=== PATIENT | female | born 1960 | race Caucasian/White ===

== ENCOUNTER 2018-09-11 20:09 | Observation (INO) ==
--- NOTE | 2018-09-11 20:32 | Emergency Department Note ---
Disposition Clinical Impression: Impacted esophageal foreign body Qualifiers: Encounter type: initial encounter Qualified Code(s): T18.108A - Unspecified foreign body in esophagus causing other injury, initial encounter Disposition: Still a Patient General Adult HPI - General Chief complaint: ED General Medical Stated complaint: Food Bolus Time Seen by Provider: 09/11/18 20:12 Source: patient Limitations: no limitations Nursing Notes Reviewed: Yes Vital Signs Reviewed: Yes - History of Present Illness HPI Narrative: ED attending attestation note: I examined this patient and my medical decision-making was reviewed with the emergency medicine resident CHELSIE BREWER agree with the documented findings, disposition and treatment plan as described except to the extent set forth below. Briefly: 58-year-old female sent from [facility] with impacted food in her esophagus. Patient has a piece of spare ribs stuck since yesterday. Review of chart states the endoscopist there states that they do not have the tools available large enough to take out the food bolus and so they were referred here. Patient's physical examination essentially benign she is awake and alert cooperative normal phonation" she can handle liquids. The patient on endoscopy supply person Dr. Zepeda who will come in to perform an EGD. Disposition pending Pain Scale: 5 - Related Data Previous Rx's Medication Instructions Recorded Cefdinir [Omnicef] 300 mg PO BID #14 capsule 02/12/18 metroNIDAZOLE [Flagyl] 500 mg PO BID #14 tablet 02/12/18 Allergies Allergy/AdvReac Type Severity Reaction Status Date / Time Penicillins AdvReac Rash Verified 02/12/18 20:08 Past Medical History - Past Medical History Medical history: Reports: no medical history - Social History Smoking Status: Current every day smoker Smokeless Tobacco Status: No Alcohol use: Reports: occasionally Drug use: Reports: none Physical Exam - General Limitations: no limitations General appearance: alert, in no apparent distress Course Vital Signs Temperature 98.6 F 09/11/18 20:15 Pulse Rate 76 09/11/18 20:15 Respiratory Rate 16 09/11/18 20:15 Blood Pressure 168/88 09/11/18 20:15 O2 Sat by Pulse Oximetry 99 09/11/18 20:15 Temperature 98.6 F 09/11/18 20:15 Pulse Rate 76 09/11/18 20:15 Respiratory Rate 16 09/11/18 20:15 Blood Pressure 168/88 09/11/18 20:15 O2 Sat by Pulse Oximetry 99 09/11/18 20:15 Oxygen Delivery Oxygen Delivery Room Air
--- NOTE | 2018-09-11 20:43 | Emergency Department Note ---
Disposition Clinical Impression: Impacted esophageal foreign body Qualifiers: Encounter type: initial encounter Qualified Code(s): T18.108A - Unspecified foreign body in esophagus causing other injury, initial encounter Disposition: Still a Patient Condition: Fair Time of Disposition: 21:25 General Adult HPI - General Stated complaint: Food Bolus Time Seen by Provider: 09/11/18 20:12 Source: patient Limitations: no limitations Nursing Notes Reviewed: Yes Vital Signs Reviewed: Yes - History of Present Illness HPI Narrative: 58-year-old female presents as transfer from [facility] for endoscopic evaluation. She was eating food last night at 7 PM; 25 hours prior to arrival. She had sensation of a food bolus becoming stuck in her esophagus. She was eating spare ribs. She experiences pressure at the level of her suprasternal notch. She attempted to drink fluids throughout the day but she would gag and spit them up. She has been swallowing her saliva however, after period of time, will spit them back up. She has attempted to eat crackers and some lunchmeat but her sensation has on been unchanged. Patient has no history of esophageal impaction. She is never had an upper endoscopy. She has no history of reflux or GERD. She presents as transfer from [facility]. There, they attempted glucagon. They attempted sips of water. Endoscopy at their facility was consultative. Their endoscopist at that facility did not have the appropriate equipment and would not perform the endoscopy suite: She recommended transfer to this facility. PMH: None Daily medications: None ROS: Positive: Sensation of esophageal fullness. Inability to tolerate fluids or secretions. Negative: Fever, chills, nausea, chest pains, palpitations, dyspnea, diaphoresis Pain Scale: 5 - Related Data Previous Rx's Medication Instructions Recorded Cefdinir [Omnicef] 300 mg PO BID #14 capsule 02/12/18 metroNIDAZOLE [Flagyl] 500 mg PO BID #14 tablet 02/12/18 Allergies Allergy/AdvReac Type Severity Reaction Status Date / Time Penicillins AdvReac Rash Verified 02/12/18 20:08 All systems ED: reviewed and negative except as stated. Review of Systems: As Per HPI Past Medical History - Past Medical History Medical history: Reports: no medical history - Social History Smoking Status: Current every day smoker Smokeless Tobacco Status: No Alcohol use: Reports: occasionally Drug use: Reports: none Physical Exam Vital Signs Reviewed General: Patient is alert, oriented, and in no acute distress. Patient is protecting her airway. Head: atraumatic, normocephalic Eye: normal appearance, PERRL, EOMI, no scleral icterus, no conjunctival injection ENT: mucous membranes moist, normal external ear exam. Malampatti score 4. Neck: normal inspection, trachea midline, full ROM Chest: normal inspection, symmetric chest rise Respiratory: Good respiratory effort. Bilateral breath sounds are clear without wheezing, crackles, or rhonchi. Cardiovascular: Regular rate and rhythm. No clicks, rubs, gallops, or murmors. Normal heart sounds. Abdomen: Bowel sounds present normoactive. Abdomen is soft, nondistended, and nontender. No guarding or rebound. No organomegaly noted. Musculoskeletal: Spontaneously moving all extremities. Skin: warm, dry, intact. Neuro: GCS 15. No focal neurologic deficits observed. Psych: Patient's affect is appropriate for situation. - General Limitations: no limitations General appearance: alert, in no apparent distress Course Course Narrative: Patient can swallow her secretions however, they build up and she gags and spits them into a basin. She has failed glucagon and does not tolerate sips of water. I discussed the patient with on-call endoscopy, Dr. Quintanilla. He will speak with that management. He agrees to come in for evaluation of the patient. Dr. Quintanilla spoke with that management. Plan to admit the patient to his service. He will be taking the patient to endoscopy suite. Vital Signs Temperature 98.6 F 09/11/18 20:15 Pulse Rate 76 09/11/18 20:15 Respiratory Rate 16 09/11/18 20:15 Blood Pressure 168/88 09/11/18 20:15 O2 Sat by Pulse Oximetry 99 09/11/18 20:15 Temperature 98.6 F 09/11/18 20:15 Pulse Rate 76 09/11/18 20:15 Respiratory Rate 16 09/11/18 20:15 Blood Pressure 168/88 09/11/18 20:15 O2 Sat by Pulse Oximetry 99 09/11/18 20:15 Oxygen Delivery Oxygen Delivery Room Air
--- NOTE | 2018-09-11 21:16 | Anesthesia Evaluation PreOp ---
Date of Encounter: 09/11/18 Time of Encounter: 21:14 - Past History Planned Operation: Esophageal foreign body Cardiac History: Denies any Significant Hx Pulmonary History: Smoker Other Medical History: Denies Any Significant HX Anesthesia History: No Prior Anesthetic Complications, Past Anesthesia (appy) Alcohol Use: occasionally Drug use: none Medications and Allergies Cefdinir [Omnicef] 300 mg PO BID #14 capsule 02/12/18 [Rx] metroNIDAZOLE [Flagyl] 500 mg PO BID #14 tablet 02/12/18 [Rx] Allergy/AdvReac Type Severity Reaction Status Date / Time Penicillins AdvReac Rash Verified 02/12/18 20:08 - Meds/Allergy Pre-op Review Medications Reviewed: Yes Allergies Reviewed: Yes Beta Blockers on Current Med List: No Anesthesia Exam Vital Signs/O2 Sat, Most Current Temp Pulse Resp BP Pulse Ox 98.6 F 76 16 168/88 99 09/11/18 20:15 09/11/18 20:15 09/11/18 20:15 09/11/18 20:15 09/11/18 20:15 Weight: 77kg NPO (# of Hours): full stomach - HEENT Pupil (Motor): Pupils equal, EOMI Mallampati: III Teeth: Normal Oral Opening: Less than or equal to 3 - CHIEF MEDICAL TECHNOLOGIST LOC: Oriented CHIEF MEDICAL TECHNOLOGIST Motor: Normal RUE, Normal LUE, Normal RLE, Normal LLE, Normal Face CHIEF MEDICAL TECHNOLOGIST Sensory: Normal: RUE, LUE, RLE, LLE, Face - Cardiac Rhythm: Regular - Pulmonary Breath Sounds: bilateral Clear Respiratory Effort: Symmetrical Anesthesia Assess/Plan ASA Score: 2, E Level of consciousness: Cooperative Anesthetic Plan: General (RSI GETA) Monitoring Plan: Standard Monitors Recovery Plan: PACU
[2018-09-11] MEDS ORDERED: *HR* Succinylcholine 200 MG/10 ML VIAL IVP ONE (21:23)
[2018-09-11] MEDS ORDERED: *HR* Rocuronium Bromide 50 MG/5 ML VIAL ONE (21:23)
[2018-09-11] MEDS ORDERED: Dexamethasone 4 MG/ML VIAL ONE (21:24)
[2018-09-11] MEDS ORDERED: Ondansetron 4 MG/2 ML VIAL ONE (21:24)
[2018-09-11] MEDS ORDERED: *HR* FentaNYL (PF) 100 MCG/2 ML VIAL ONE (21:24)
[2018-09-11] MEDS ORDERED: *HR* Propofol 200 MG/20 ML VIAL IVP ONE (21:24)
[2018-09-11] MEDS ORDERED: Lidocaine -MPF 2% 2 ML VIAL ONE (21:24)
[2018-09-11] MEDS ORDERED: Lidocaine -MPF 4% 5 ML AMPUL ONE (21:31)
[2018-09-11] MEDS ORDERED: *HR* OxyCODONE Immed Rel 5 MG TABLET PO PRN (21:36)
[2018-09-11] MEDS ORDERED: *HR* Promethazine 25 MG/ML VIAL IVP PRN (21:36)
[2018-09-11] MEDS ORDERED: Ondansetron 4 MG/2 ML VIAL IVP ONE (21:36)
[2018-09-11] MEDS ORDERED: Albuterol 2.5 MG/3 ML NEBULIZER IH ONE (21:39)
--- NOTE | 2018-09-11 22:33 | History & Physical Report ---
Date of Encounter: 09/11/18 Time of Encounter: 21:45 24 Hour HP Update - Instructions Instructions: If the History and Physical is less than 30 days old and was completed prior to A.M. admission and or procedure and has NOT been updated on calendar day of procedure please complete this update prior to performing procedure. - Update Patient reports changes in Medical Condition: No Changes in examination, assessment, or condition: No Changes in Medication: No Preop tests/diagnostics Reviewed: Yes Surgery Remains Indicated: Yes Consent for Planned Operative Procedure(s) Verified: Yes - Pre-Operative Checklist Preoperative Checklist Indicated: Yes Prophylactic Antibiotic Ordered: No Home Medications Include Beta Isela: Yes
--- NOTE | 2018-09-11 22:38 | Gastroenterology Consult Note ---
Date of Encounter: 09/11/18 Time of Encounter: 21:45 - Assessment and plan (1) Dysphagia Current Visit: Yes Status: Acute Assessment and plan: Plan emergent EGD with disimpaction of meat (foreign body) with MAC/GET. Further recommendations post EGD. Risks including perforation, the need for possible surgery discussed with her and boyfriend at bedside. Informed consent obtained. Qualifiers: Dysphagia type: esophageal phase Qualified Code(s): R13.10 - Dysphagia, unspecified (2) Impacted esophageal foreign body Current Visit: Yes Status: Acute Qualifiers: Encounter type: initial encounter Qualified Code(s): T18.108A - Unspecified foreign body in esophagus causing other injury, initial encounter - Time Spent With Patient Total time spent is greater than 50% in coordination of care (as documented) at patient's floor/unit and/or counseling patient: 25 - 35 minutes GI History of Present Illness - Data of Consult Requesting Physician: Emergency Department - Consult Narrative Reason for consult: fOREIGN BODY ESOPHAGUS History of present illness: Ms. Gonzalez is a 58 year old female who was in her usual state of health yesterday when she had ribs for dinner and started coughing shortly after dinner. She then brought up what she thought initially was all of the meat but, then realized maybe only partially as she continued to cough and "choke" intermittently. She presented to [facility] earlier today and they gave her Glucagon and tried to give her water to drink but, she vomited it up. She was then transferred to the ED here for endoscopy and further management. Patient denies any history of previous episode or dysphagia. Very infrequent heartburn if, any. No chest pain. Had a colonoscopy earlier this year and was told it was negative ([facility]). Negative family hx of GI malignancy. No melena or hematochezia No syncope. Past Med Surg Social Fam HX - Past Medical History Medical history: no medical history - Past Surgical History Additional surgical history: tubal ligation - Social History Smoking Status: Current every day smoker Smokeless Tobacco Status: No Alcohol use: occasionally Drug use: none - Gastrointestinal Gastrointestinal: Present: as per HPI - Constitutional Constitutional: as per HPI, anorexia - EENT Eyes: as per HPI Nose, mouth and throat: Present: dysphagia - Cardiovascular Cardiovascular ROS: Present: as per HPI - Respiratory Respiratory IM: Present: cough - Neurological ROS Neurological GI: Present: as per HPI - Hematologic/Lymphatic Hematologic/Lymphatic pediatric: Present: as per HPI - Musculoskeletal Musculoskeletal ROS GI: Present: as per HPI - Integumentary Integumentary GI: Present: as per HPI - Psychiatric ROS Psychiatric GI: Present: as per HPI - Endocrine Endocrine IM: Present: as per HPI - Constitutional Vitals: Temp Pulse Resp BP Pulse Ox 98.6 F 78 16 165/84 97 09/11/18 20:15 09/11/18 22:00 09/11/18 22:00 09/11/18 22:00 09/11/18 22:00 - Eye Eye exam: Present: EOMI, normal appearance, PERRL - ENT ENT exam: Present: normal exam - Neck Neck exam general surgery: Present: full ROM, normal inspection, supple, trachea midline - Respiratory Respiratory exam: Present: CTAB - Cardiovascular Cardiovascular exam: Present: +S1, +S2 - GI/Abdominal GI/Abdominal exam: Present: normal bowel sounds, soft, no peritoneal signs - Rectal Rectal exam: Present: deferred - Extremities Exam Extremities exam: Present: normal inspection, warm - Neurological Exam Neurological exam: Present: alert, oriented X3, no focal deficits - Psychiatric Psychiatric exam: Present: normal affect, normal mood - Skin Skin exam: Present: intact, normal color Results - Impressions Impressions Chest X-Ray 09/11/18 20:34 IMPRESSION: Negative chest radiograph. D/ / Ananda Diaz MD / Ananda Diaz MD Interpreting Provider: Ananda Diaz MD - Diagnostic Studies Abdominal x-ray Status: image reviewed by me Consult Discharge Plan - Plan Referrals: Immanuel Rivera [Primary Care Provider] -
--- NOTE | 2018-09-11 23:35 | Anesthesia Evaluation Post Op ---
Date of Encounter: 09/11/18 Time of Encounter: 23:32 - Vital Signs Vital Signs: Vital Signs/O2 Sat, Most Current Temp Pulse Resp BP Pulse Ox 97.3 F L 88 15 136/79 97 09/11/18 23:14 09/11/18 23:24 09/11/18 23:24 09/11/18 23:24 09/11/18 23:24 - Lungs Lungs: Clear Ascult./Percussion - Airway Airway: Non-obstructed - Cardiovascular Regular Rate - Mental Status Mental Status: Alert & Oriented, Answers Appropriately - Pain Pain Scale: 0 Pain Scale used: Numeric (1 - 10) - Nausea Vomiting Nausea Vomiting: Not Present - Hydration Hydration: Ice chips - Discharge PostOp Status: Transfer Patient to floor
[2018-09-12 00:14] VITALS: BP 136/79
== END 2018-09-12 00:30 | disposition home or self-care (01) ==
LOC: 3BNU 20:09 → EMEROOARM 20:09 → 3BNU 22:34
PROVIDERS: ADMIT Internal Medicine Gastroenterology; ATTEND Internal Medicine Gastroenterology
PROC: ENDOEFB (2018-09-11 09:30)